=== PATIENT | female | born 1940 | race Caucasian/White ===

== ENCOUNTER 2017-07-30 16:58 | Inpatient (IN) | payer MEDICARE ==
[~2017-07-30] VITALS: Ht 165.1 cm; Wt 59.0 kg
[2017-07-30] MEDS ORDERED: PLAVIX 75 MG TA75 M1 PO (17:53)
[2017-07-30] MEDS ORDERED: BIOTIN1000 MCG PO (17:53)
[2017-07-30] MEDS ORDERED: RESTASIS1 EACH OPHTHALMIC (17:54)
[2017-07-30] MEDS ORDERED: IMDUR 30 MG TAB30 M1 PO (17:55)
[2017-07-30] MEDS ORDERED: METFORMIN HCL500 MG PO (17:55)
[2017-07-30] MEDS ORDERED: LOPRESSOR25 PO (17:56)
[2017-07-30] MEDS ORDERED: PRESERVISION A1 EAC2 PO (17:57)
[2017-07-30] MEDS ORDERED: CRESTOR40 MG PO (17:58)
[2017-07-30] MEDS ORDERED: LEVEMIR100 UNIT/1 SUBQ (17:59)
[2017-07-30] MEDS ORDERED: NOVOLOG100 UNIT/1 SUBQ (18:01)
[2017-07-30] MEDS ORDERED: CRANBERRY300 MG PO (18:02)
[2017-07-30 20:00] VITALS: BP 121/49
[2017-07-31 05:53] LABS: ABSOLUTE EOSINOPHILS 0.2 thou/uL (0.0-0.7); ABSOLUTE LYMPHOCYTES 1.4 thou/uL (0.8-5.3); ABSOLUTE MONOCYTES 0.8 thou/uL (0.0-1.2); ABSOLUTE NEUTROPHILS 3.4 thou/uL (1.6-8.1); BASOPHILS 0.6 %; EOSINOPHILS 2.9 %; HEMATOCRIT 40.9 % (37.0-47.0); HEMOGLOBIN 13.9 gm/dL (12.0-15.0); LYMPHOCYTES 24.5 %; MCV 88.2 fL (80.0-100.0); MONOCYTES 13.1 %; MPV 7.6 fl. (7.2-11.1); NUCLEATED RBCS 0 /100WBC; PLATELET COUNT* 236 thou/uL (150-400); POLYS 58.9 %; RBC 4.64 mil/uL (4.20-5.00); RDW-CV 14.3 % (10.5-14.5); WBC 5.8 thou/uL (4.0-11.0)
[2017-07-31 06:05] LABS: CALCIUM 9.4 mg/dL (8.5-10.1); CREATININE 0.5 mg/dL (0.6-1.3); POTASSIUM 3.3 mmol/L (3.5-5.1)
[2017-07-31 07:41] VITALS: BP 148/55
[2017-07-31 15:18] LABS: ALBUMIN 3.6 g/dL (3.4-5.0); CALCIUM 10.1 mg/dL (8.5-10.1); MAGNESIUM 1.4 mg/dL (1.8-2.4)
[2017-07-31 20:00] VITALS: BP 121/64
[2017-08-01 04:13] LABS: CALCIUM 9.6 mg/dL (8.5-10.1); CREATININE 0.7 mg/dL (0.6-1.3)
[2017-08-01 04:15] LABS: POTASSIUM 4.6 mmol/L (3.5-5.1)
[2017-08-01 07:50] VITALS: BP 114/52
[2017-08-01 19:59] VITALS: BP 112/54
[2017-08-02 04:33] LABS: ABSOLUTE EOSINOPHILS 0.1 thou/uL (0.0-0.7); ABSOLUTE LYMPHOCYTES 1.4 thou/uL (0.8-5.3); ABSOLUTE MONOCYTES 0.7 thou/uL (0.0-1.2); ABSOLUTE NEUTROPHILS 3.4 thou/uL (1.6-8.1); BASOPHILS 0.4 %; EOSINOPHILS 2.6 %; HEMATOCRIT 39.7 % (37.0-47.0); HEMOGLOBIN 13.1 gm/dL (12.0-15.0); LYMPHOCYTES 24.5 %; MCH 29.8 pg (26.0-34.0); MCHC 33.1 g/dL (28.0-37.0); MCV 89.9 fL (80.0-100.0); MONOCYTES 12.3 %; MPV 7.9 fl. (7.2-11.1); NUCLEATED RBCS 0 /100WBC; PLATELET COUNT* 242 thou/uL (150-400); POLYS 60.2 %; RBC 4.41 mil/uL (4.20-5.00); RDW-CV 15.1 % (10.5-14.5); WBC 5.7 thou/uL (4.0-11.0)
[2017-08-02 04:49] LABS: CALCIUM 9.6 mg/dL (8.5-10.1); CREATININE 0.7 mg/dL (0.6-1.3); POTASSIUM 4.2 mmol/L (3.5-5.1)
[2017-08-02 08:32] VITALS: BP 118/47
[2017-08-02 20:00] VITALS: BP 122/59
[2017-08-03 07:41] VITALS: BP 126/57
[2017-08-03 19:57] VITALS: BP 131/55
[2017-08-04 08:00] VITALS: BP 111/55
[2017-08-04 20:17] VITALS: BP 114/59
[2017-08-05 04:11] LABS: ABSOLUTE EOSINOPHILS 0.2 thou/uL (0.0-0.7); ABSOLUTE LYMPHOCYTES 1.7 thou/uL (0.8-5.3); ABSOLUTE MONOCYTES 0.8 thou/uL (0.0-1.2); ABSOLUTE NEUTROPHILS 3.5 thou/uL (1.6-8.1); BASOPHILS 0.4 %; EOSINOPHILS 2.6 %; HEMATOCRIT 39.7 % (37.0-47.0); HEMOGLOBIN 13.5 gm/dL (12.0-15.0); LYMPHOCYTES 27.8 %; MCH 29.9 pg (26.0-34.0); MCV 88.1 fL (80.0-100.0); MONOCYTES 12.8 %; MPV 7.8 fl. (7.2-11.1); NUCLEATED RBCS 0 /100WBC; PLATELET COUNT* 247 thou/uL (150-400); POLYS 56.4 %; RBC 4.51 mil/uL (4.20-5.00); RDW-CV 14.5 % (10.5-14.5); WBC 6.3 thou/uL (4.0-11.0)
[2017-08-05 04:32] LABS: CALCIUM 9.7 mg/dL (8.5-10.1); CREATININE 0.6 mg/dL (0.6-1.3); POTASSIUM 3.7 mmol/L (3.5-5.1)
[2017-08-05 07:48] VITALS: BP 124/53
[2017-08-05 20:33] VITALS: BP 131/58
[2017-08-06 07:56] VITALS: BP 125/55
[2017-08-06 22:00] VITALS: BP 121/59
[2017-08-07 03:54] LABS: ABSOLUTE EOSINOPHILS 0.2 thou/uL (0.0-0.7); ABSOLUTE LYMPHOCYTES 1.6 thou/uL (0.8-5.3); ABSOLUTE MONOCYTES 0.6 thou/uL (0.0-1.2); ABSOLUTE NEUTROPHILS 2.6 thou/uL (1.6-8.1); BASOPHILS 0.5 %; EOSINOPHILS 3.4 %; HEMATOCRIT 37.1 % (37.0-47.0); HEMOGLOBIN 12.6 gm/dL (12.0-15.0); LYMPHOCYTES 31.4 %; MCH 30.3 pg (26.0-34.0); MCHC 33.9 g/dL (28.0-37.0); MCV 89.5 fL (80.0-100.0); MONOCYTES 12.6 %; MPV 7.6 fl. (7.2-11.1); NUCLEATED RBCS 0 /100WBC; PLATELET COUNT* 223 thou/uL (150-400); POLYS 52.1 %; RBC 4.15 mil/uL (4.20-5.00); RDW-CV 14.3 % (10.5-14.5)
[2017-08-07 04:18] LABS: CALCIUM 9.3 mg/dL (8.5-10.1); CREATININE 0.7 mg/dL (0.6-1.3); POTASSIUM 3.6 mmol/L (3.5-5.1)
[2017-08-07 08:00] VITALS: BP 128/56
[2017-08-07 20:00] VITALS: BP 135/60
[2017-08-08 08:20] VITALS: BP 114/48
[2017-08-08 21:00] VITALS: BP 115/47
[2017-08-09 08:00] VITALS: BP 134/65
[2017-08-09 19:58] VITALS: BP 121/55
[2017-08-10 06:45] VITALS: BP 124/48
[2017-08-10 19:30] VITALS: BP 137/70
[2017-08-11 09:01] VITALS: BP 134/47
[2017-08-11 19:44] VITALS: BP 128/55
[2017-08-12 08:03] VITALS: BP 124/46
[2017-08-12 20:30] VITALS: BP 127/52
[2017-08-13 08:46] VITALS: BP 115/50
[2017-08-13 20:32] VITALS: BP 128/56
[2017-08-14 08:17] VITALS: BP 127/64
[2017-08-14 20:45] VITALS: BP 130/62
[2017-08-15 08:00] VITALS: BP 132/58
[2017-08-15 20:38] VITALS: BP 104/62
[2017-08-16 08:00] VITALS: BP 126/57
[2017-08-16 20:00] VITALS: BP 113/58
[2017-08-17 07:30] VITALS: BP 119/52
[2017-08-17 20:00] VITALS: BP 125/61
[2017-08-18 07:30] VITALS: BP 132/68
[2017-08-18 19:55] VITALS: BP 124/63
[2017-08-19 04:03] LABS: ABSOLUTE EOSINOPHILS 0.1 thou/uL (0.0-0.7); ABSOLUTE LYMPHOCYTES 1.3 thou/uL (0.8-5.3); ABSOLUTE MONOCYTES 0.6 thou/uL (0.0-1.2); ABSOLUTE NEUTROPHILS 3.4 thou/uL (1.6-8.1); BASOPHILS 0.5 %; EOSINOPHILS 2.2 %; HEMATOCRIT 37.5 % (37.0-47.0); HEMOGLOBIN 12.6 gm/dL (12.0-15.0); LYMPHOCYTES 23.4 %; MCH 30.1 pg (26.0-34.0); MCHC 33.7 g/dL (28.0-37.0); MCV 89.5 fL (80.0-100.0); MONOCYTES 11.7 %; MPV 7.4 fl. (7.2-11.1); NUCLEATED RBCS 0 /100WBC; PLATELET COUNT* 205 thou/uL (150-400); POLYS 62.2 %; RBC 4.19 mil/uL (4.20-5.00); RDW-CV 14.5 % (10.5-14.5); WBC 5.4 thou/uL (4.0-11.0)
[2017-08-19 04:25] LABS: ALBUMIN 3.3 g/dL (3.4-5.0); CALCIUM 9.2 mg/dL (8.5-10.1); CREATININE 0.7 mg/dL (0.6-1.3); POTASSIUM 3.7 mmol/L (3.5-5.1); TOTAL BILIRUBIN 1.4 mg/dL (<0.1-1.0); TOTAL PROTEIN 5.6 g/dL (6.4-8.2)
[2017-08-19 07:30] VITALS: BP 136/61
[2017-08-19 19:38] VITALS: BP 112/61
[2017-08-20 08:43] VITALS: BP 125/65
--- NOTE | 2017-08-20 13:45 | H ---
[address] [address] HISTORY AND PHYSICAL Name: JADA CHAVEZ Room: [address] IN M.R.#: [id number] Admission: 07/30/17 Attend Phys: Laura Palomo DO Discharge: Date of : 44 Report #: [id number] THIS REPORT FOR: //name// CC: Laura Encarnacion HISTORY OF PRESENT ILLNESS: This is a 77-year-old female admitted to inpatient rehabilitation to facilitate safe discharge home, status post presentation at [facility] on 07/28/2017 with complaints of right-sided weakness, right-sided facial droop, slurred speech for at least 1 day, but had been worsening. She had also had a history of multiple falls and concussions since 2016. MRI did show a 7 mm acute left pontine stroke. She is right hand dominant female. She has ongoing right hemiparesis in upper and lower extremity with dysarthria and some aphasia. There have been no significant changes since the preadmission screening. She has been participating with therapies on the acute side and is now appropriate for inpatient rehabilitation with multiple medical comorbidities requiring daily medical care. Previous level of function was independent to modified independent with activities of daily living. Current level of function is minimum to moderate assistance depending on therapy, activity and time of day. She does have mild impairment of comprehension, expression, social interaction and problem solving. Estimated length of stay is 12-14 days with discharge disposition to the home setting. PAST MEDICAL HISTORY: Hypertension, uncontrolled diabetes with a random glucose of 260, hemoglobin A1c of 8.9, history of dementia, history of multiple falls and concussions, coronary artery disease, IBS, vertigo, vestibular treatment in place. PAST SURGICAL HISTORY: Tonsillectomy, coronary artery stents, cholecystectomy and a breast biopsy. ALLERGIES: No known drug allergies. SOCIAL HISTORY: No tobacco, alcohol or illicit drug use. FAMILY HISTORY: Diabetes and heart disease. REVIEW OF SYSTEMS: A 14-point review of systems is done and is negative except as mentioned in the HPI, specifically no fever, chest pain, shortness of breath, abdominal pain or distention. PHYSICAL EXAMINATION: GENERAL: Alert, up in the chair, in no apparent distress. NEUROLOGIC: Some mild right-sided facial droops and right hemiparesis with 3-4/5 strength in the right upper and 3-4/5 strength in the right lower extremity, 5/5 strength in left upper and left lower extremity. She does have some word finding and [place] [address] HISTORY AND PHYSICAL Name: JADA CHAVEZ Room: [address]#: [id number] Admission: 07/30/17 Attend Phys: Laura Palomo DO Discharge: Date of : 44 Report #: [id number] SKIN: Warm and dry. No rashes or lesions noted. LUNGS: Symmetrical expansion of the lungs with breathing. ASSESSMENT: 1. 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 2. Multiple medical comorbidities including uncontrolled diabetes, hypertension and dementia. PLAN: 1. Admission to inpatient rehabilitation to facilitate safe discharge home. 2. PT, OT, speech, language, case management, nursing and HIMS to make evaluations and recommendations. 3. Plan of care is pending. 4. We will team her weekly. 5. Laboratories on day after admission. <ELECTRONICALLY SIGNED> By: Laura Palomo DO 08/20/17 1345 [id number] [id number] Palomo DO /nt
--- NOTE | 2017-08-20 13:45 | PLAN ---
[address] [address] REHAB UNIT PLAN OF CARE Name: JADA CHAVEZ Room: [address] IN M.R.#: [id number] Admission: 07/30/17 Attend Phys: Laura Palomo DO Discharge: Date of : 44 Report #: [id number] THIS REPORT FOR: //name// CC: Laura Encarnacion This is a right hand dominant female admitted to inpatient rehabilitation to facilitate safe discharge home, status post cerebrovascular accident. She is a right hand dominant female with residual left upper and lower hemiparesis with aphasia, dysphagia and dysarthria. MEDICAL PROGNOSIS: Good. REHABILITATION PROGNOSIS: Good. Previous level of function was modified independent to independent with activities of daily living. Current level of function is minimum to moderate assistance of 1-2, depending on therapy, activity and time of day. ESTIMATED LENGTH OF STAY: 16-18 days with discharge disposition to the home setting. Physical therapy will see the patient 60-90 minutes per day, 5 days per week, working on upper and lower body strength, balance, coordination, navigation. Occupational therapy will work on the patient 60-90 minutes per day, 5 days per week, working on upper and lower body strength, balance, coordination, navigation, bathing, dressing, and toileting. Speech and language pathology will work with the patient 30-90 minutes per day, 5 days per week, working on dysarthria, aphasia, memory impairment and swallow. This is an overall plan of care, may change from time to time, we will team her weekly and make changes to the plan of care as needed. <ELECTRONICALLY SIGNED> By: Laura Palomo DO 08/20/17 1345 1455 [id number] Palomo DO /nt
[2017-08-20 20:27] VITALS: BP 116/56
[2017-08-21 08:26] VITALS: BP 117/61
[2017-08-21 16:12] VITALS: BP 117/61
[2017-08-21 19:55] VITALS: BP 138/68
[2017-08-22 00:16] VITALS: BP 117/61
[2017-08-22 03:33] VITALS: BP 117/61
[2017-08-22 08:00] VITALS: BP 121/51
[2017-08-22 08:35] VITALS: BP 121/51
--- NOTE | 2017-09-29 15:02 | D ---
[address] [address] DISCHARGE SUMMARY Name: SCOTTJADA Eliecer Room: [address] IN M.R.#: [id number] Admission: 07/30/17 Attend Phys: Laura Palomo DO Discharge: 08/22/17 Date of : 44 Report #: [id number] THIS REPORT FOR: //name// CC: Laura Dillon Velakaturi DATE OF SERVICE: 08/22/2017 DISCHARGE DIAGNOSIS: Cerebrovascular accident. HOSPITAL COURSE: This is a 77-year-old female, admitted to inpatient rehabilitation to facilitate safe discharge home, status post presentation on 07/28/2017 with right-sided weakness, facial droop, slurred speech and left MCA CVA. She did have multiple falls. She was admitted to inpatient rehabilitation. She participated in physical and occupational therapy as well as speech and language pathology. She did progress in her therapies appropriately. She will be discharged on a regular heart healthy diet. She will have supervision at home. She will have home health, PT, OT and nursing initially. She will follow up with her primary care physician within 1 week and her neurologist within 2-4 weeks. DISCHARGE PHYSICAL EXAMINATION: GENERAL: Alert, oriented, no apparent distress. VITAL SIGNS: Reviewed and are stable. HEENT: Head atraumatic, normocephalic. Pupils equal, round, reactive. ABDOMEN: Soft, nontender, nondistended. NEUROLOGIC: Cranial nerves 2-12 are grossly intact with no focal neuro deficits, 5/5 strength in the bilateral upper and lower extremity. SKIN: Warm and dry. No rashes or lesions noted. <ELECTRONICALLY SIGNED> By: Laura Palomo DO 09/29/17 1502 [id number] Palomo DO /nt
== END 2017-08-22 13:58 | disposition home health service (06) | DRG 65 ==
LOC: M.REH 16:58
PROVIDERS: Family Medicine; Internal Medicine; ADMIT Physical Medicine & Rehabilitation
DX: I63.9 Cerebral infarction, unspecified (principal); G81.91 Hemiplegia, unspecified affecting right dominant side; R29.810 Facial weakness; R47.81 Slurred speech; R47.01 Aphasia; R47.1 Dysarthria and anarthria; I10 Essential (primary) hypertension; E11.65 Type 2 diabetes mellitus with hyperglycemia; F03.90 Unspecified dementia, unspecified severity, without behavioral disturbance, psychotic disturbance, mood disturbance, and anxiety; I25.10 Atherosclerotic heart disease of native coronary artery without angina pectoris; K58.9 Irritable bowel syndrome, unspecified; E78.5 Hyperlipidemia, unspecified; E87.6 Hypokalemia; Z79.4 Long term (current) use of insulin; Z79.899 Other long term (current) drug therapy; Z90.49 Acquired absence of other specified parts of digestive tract; Z95.5 Presence of coronary angioplasty implant and graft; Z80.9 Family history of malignant neoplasm, unspecified; Z83.3 Family history of diabetes mellitus; Z82.49 Family history of ischemic heart disease and other diseases of the circulatory system